=== PATIENT | male | born 1995 | race Caucasian/White ===

== ENCOUNTER 2019-01-18 15:51 | Emergency (ER) | payer MEDICAID ==
[~2019-01-18] VITALS: Wt 79.0 kg
[~2019-01-18 15:51] MED LIST: DIPH25CA6 PO; SULF5DRO17 BOTH EYES
[2019-01-18 15:53] VITALS: BP 152/86; PULSE 87; RESP 18
[2019-01-18] MEDS ORDERED: ERYT1OIN6 BOTH EYES (19:44)
[2019-01-18] MEDS ORDERED: PRED12OP5 BOTH EYES (19:44)
[2019-01-18] MEDS ORDERED: IBUP-1542 PO (19:45)
[2019-01-18] MEDS ORDERED: ACETAMINOPHEN 500 MG TAB PO STA (19:46)
[2019-01-18] MEDS ORDERED: IBUPROFEN 600 MG TAB PO ONE (20:00)
[2019-01-18] MEDS ORDERED: PREDNISOLONE ACET 1% 5 ML OPH BOTH EYES ONE (20:00)
[2019-01-18] MEDS ORDERED: ERYTHROMYCIN 1 GM OPH OINT BOTH EYES ONE (20:00)
[2019-01-18] MEDS ORDERED: DEXAMETHASONE 4 MG/ML 1 ML INJ IM ONE (20:00)
--- NOTE | 2019-01-19 03:21 | ERD ---
ER Documentation Chief Complaint Chief Complaint bilateral eye redness/itchiness and burning x 2 weeks HPI 23 year-old [male] coming in today with Chief Complaint: Eye irritation History of Present Illness: Patient coming in today with complaint of bilateral eye and eyelid redness, itchiness, burning for 2 weeks. Patient denies sick contacts. Patient reports coming to [facility] ER on 01/09/19, and given antibiotics. Patient reports completing course of antibiotics but symptoms have not improved. He denies any other associated symptoms. Review of systems: All systems were reviewed and are negative except for what is indicated in the history of present illness. Past Medical History: [Negative for hypertension, diabetes or other medical problems] Social History: [Patient denies tobacco, alcohol, elicit drug use] Medications: [None] [Reviewed as documented in Nursing Notes] Allergies: [NKDA] Social Concerns: Denies ROS All systems reviewed and are negative except as per history of present illness. Medications Home Meds Active Scripts Ibuprofen* (Motrin*) 600 Mg Tab, 600 MG PO Q6 for pain, #30 TAB Prov:LUCI JEROME NP 01/18/19 Prednisolone Acetate* (Pred Mild*) 5 Ml Drops.susp, 1 DROP BOTH EYES QID for swelling/inflammation for 7 Days, EA Prov:LUCI JEROME NP 01/18/19 Erythromycin Base (Erythromycin) 1 Gm Oint...g., 1 APPLIC BOTH EYES QID for eye infection for 10 Days Prov:LUCI JEROME NP 01/18/19 Diphenhydramine Hcl* (Diphenhydramine Hcl*) 25 Mg Capsule, 25 MG PO Q6 PRN for ITCHING, #15 CAP Prov:RAVI PARSONS MD 01/09/19 Sulfacetamide Sodium* (Bleph-10*) 10%-5 Ml Opht Drops, 1 DROP BOTH EYES Q3H for 7 Days, #1 EA Prov:RAVI PARSONS MD 01/09/19 Allergies Allergies: Coded Allergies: No Known Allergy (Unverified , 01/18/19) PMhx/Soc Medical and Surgical Hx: pt denies Medical Hx, pt denies Surgical Hx Hx Alcohol Use: No Hx Substance Use: No Hx Tobacco Use: No Smoking Status: Never smoker FmHx Family History: No diabetes, No coronary disease Physical Exam Vitals Vital Signs Date Temp Pulse Resp B/P (MAP) Pulse Ox O2 O2 Flow FiO2 Time Delivery Rate 01/18/19 98.4 87 18 152/86 100 15:53 (108) Physical Exam Const: No acute distress Head: Atraumatic Eyes: Normal Conjunctiva, erythema noted to upper and lower lids with yellow discharge ENT: Normal External Ears, Nose and Mouth. Neck: Full range of motion. No meningismus. Resp: Clear to auscultation bilaterally Cardio: Regular rate and rhythm, no murmurs Abd: Soft, non tender, non distended. Normal bowel sounds Skin: No petechiae or rashes Back: No midline or flank tenderness Ext: No cyanosis, or edema Neur: Awake and alert Psych: Normal Mood and Affect Results 24 hrs Current Medications Medications Dose Sig/Cheryl Start Time Status Last (Trade) Ordered Route PRN Stop Time Admin Dose Reason Admin 1 applic ONCE ONCE 01/18/19 DC 01/18/19 Erythromycin BOTH EYES 20:00 20:13 01/18/19 20:01 (Erythromycin Oph Oint) 1 drop ONCE ONCE 01/18/19 DC 01/18/19 Prednisolone BOTH EYES 20:00 20:13 Acetate 01/18/19 20:01 (Pred-Forte 1%) 4 mg ONCE ONCE 01/18/19 DC 01/18/19 Dexamethasone IM 20:00 19:47 (Decadron) 01/18/19 20:01 1,000 mg ONCE STAT 01/18/19 DC 01/18/19 Acetaminophen PO 19:46 20:12 (Tylenol 01/18/19 19:48 Tab) Ibuprofen 600 mg ONCE ONCE 01/18/19 DC 01/18/19 (Motrin) PO 20:00 20:13 01/18/19 20:01 Procedures/MDM Patient with complaint of eye discomfort ED course includes a thorough examination and history. Low suspicion for life-threatening ophthalmology emergency. Otherwise healthy patient presenting with constellation of symptoms likely representing uncomplicated blepharitis and conjunctivitis bilaterally as characterized by history, physical exam findings . Visual acuity within normal limits. No respiratory distress, otherwise relatively well appearing and nontoxic. Patient educated on diagnoses, prescriptions, follow-up care, return precautions. Strict return precautions given for worsening condition; questions answered discharge. Disposition for discharge with followup in 2-3 days with PCP/clinic to monitor for improving of signs and symptoms. Due to patient failing outpatient treatment treatment with first dose of antibiotics, reiterated importance of follow-up in few days. Return to ER for any severe eye pain and visual changes. Departure Diagnosis: Primary Impression: Blepharitis of both eyes Blepharitis type: unspecified type Eyelid: both upper and lower Qualified Codes: H01.00A - Unspecified blepharitis right eye, upper and lower eyel ids; H01.00B - Unspecified blepharitis left eye, upper and lower eyelids Additional Impression: Conjunctivitis Conjunctivitis type: unspecified Laterality: bilateral Qualified Codes: H10.9 - Unspecified conjunctivitis Condition: Stable Patient Instructions: Conjunctivitis Caused by Irritation, Conjunctivitis Caused by Infection, Blepharitis [facility]: [facility] Usted se guzman hecho un examen mdico de control que le indica que no est en morro condicin que requiera tratamiento urgente en el Departamento de Emergencia. Un estudio ms profundo y el tratamiento de villarreal condicin pueden esperar sin ningn riesgo hasta que usted sea atendida/o en el consultorio de villarreal mdico o morro clnica. Es responsabilidad suya arreglar morro matthias para el seguimiento del tani. MANEJO DE CONDICIONES NO URGENTES EN EL FUTURO 1) Si usted tiene un mdico de atencin primaria: Usted debera llamar a villarreal mdico de atencin primaria antes de venir al departamento de emergencia. Despus de las horas de consultorio, villarreal doctor o villarreal asociado/a est disponible por telfono. El mdico o enfermero de kushal en el servicio telefnico puede asesorarle por genesis medio para atender el problema, o tani contrario se puede programar morro matthias. 2) Si usted no tiene un mdico de atencin primaria: Llame al mdico o clnica de referencia que aparece abajo celia las horas de consultorio para hacer morro matthias para que le vean. CLINICAS: [facility] [phone] [facility] [phone] [facility] [phone] [facility] [phone] [facility] [phone] [facility] [phone] [address] [facility] Hours: Thu-Thu 9:00 AM - 5:00 PM [facility] Hours: Thu - Thu 9:00 AM - 5:00 PM Additional Instructions: Take all medicines as directed. return to ER if not any better in 7 days or if vision changes if infection goes away before 7 days, continue medicine. if you need work note before 7 days, then you can go to clinic. LUCI JEROME NP Jan 19, 2019 03:21
== END 2019-01-18 20:16 | disposition home or self-care (01) ==
LOC: FTE 15:51
DX: H01.00A Unspecified blepharitis right eye, upper and lower eyelids (principal); H01.00B Unspecified blepharitis left eye, upper and lower eyelids; H10.9 Unspecified conjunctivitis
CPT/HCPCS: 96372; J1100; Z7502; Z7610